=== PATIENT | female | born 1995 | race Caucasian/White ===

== ENCOUNTER 2017-07-10 20:09 | Emergency (ER) | payer MEDICAID, SELFPAY ==
[2017-07-10 20:23] VITALS: BP 150/82; PULSE 61; RESP 16; TEMP 36.6; O2SAT 99; BMI 29.9
[2017-07-10 20:53] VITALS: BP 133/82; PULSE 70; RESP 18; TEMP 37.1; O2SAT 99; BMI 29.9
[2017-07-10 21:00] LABS: UTC Strep Screen (Rapid) Positive (Negative)
--- NOTE | 2017-07-10 21:02 | HMH.EDUTC ---
[facility] [place] Clinical Impression: Strep pharyngitis Disposition: Home, Self-Care Condition on Discharge: Good Instructions: DI for Strep Throat Additional Instructions: Continue Keflex, Motrin as needed. Referrals: Onelia Rapp [Primary Care Provider] - Time of Disposition: 21:15 Medical Decision Making - Medical Records Medical records reviewed: Yes: I reviewed the patient's medical records. Vital Signs: 07/10/17 20:23 07/10/17 20:53 Temperature 97.8 F 98.8 F Temperature Source Tympanic Temporal Artery Scan Pulse Rate [Left] 61 70 Respiratory Rate 16 18 Blood Pressure [Right Arm] 150/82 133/82 Blood Pressure Mean [Right Arm] 104 99 Blood Pressure Source [Right Arm] Automatic Cuff Automatic Cuff Blood Pressure Position [Right Arm] Sitting 02 Sat by Pulse Oximetry 99 99 Oxygen Delivery Method Room Air Room Air - Lab Data Lab results reviewed: Yes: I reviewed the patient's lab results. Lab Results 07/10/17 20:56: Strep Scn Rapid Clinic Positive A Orders (Tests/Meds): ED MEDICATIONS Generic Name Dose Route Start Last Admin Trade Name Ingrid PRN Reason Stop Dose Admin Methylprednisolone Acetate 80 mg 07/10/17 21:01 Depo-Medrol 80mg/Ml Vial IM 07/10/17 21:02 ONCE ONE Penicillin G Benzathine 1,200,000 unit 07/10/17 21:01 Bicillin La 1,200,000 Units/2ml Syringe IM 07/10/17 21:02 ONCE ONE Protocol - [place] Inquiry Pt receiving controlled substance: No [facility] [place] HPI - General Stated complaint: knot on neck Time Seen by Provider: 07/10/17 20:49 Mode of Arrival: Ambulatory Source of Information: Patient Limitations: No Limitations Description of Symptoms (Recalled from Triage Doc. by RN): KNOT THAT POPPED UP ON RT SIDE OF NECK LAST NIGHT. [facility] DX URI. HEENT Symptoms (Recalled from RN notes): No Resp Symptoms (Recalled from RN notes): No Skin Symptoms (Recalled from RN notes): No MS Symptoms (Recalled from RN notes): No Functional Status (Recalled from RN notes): NA - History of Present Illness Provider Complaint: Swelling under right jaw since 0530 this morning. Seen at [facility] ER this am, diagnosed with URI, started on Keflex. Has taken three doses but swelling continues to get bigger. States it feels like something is stuck in her throat and it itches. Hurts to turn her head to the side and is painful to swallow. Denies difficulty handling secretions or difficulty breathing. No fever. - Related Data Home Medications Medication Instructions Recorded Confirmed No Known Home Medications [No 07/10/17 07/10/17 Known Home Medications] Allergies Allergy/AdvReac Type Severity Reaction Status Date / Time No Known Allergies Allergy Verified 07/10/17 20:56 - Worker's Comp Is this a Worker's Comp case?: No [facility] History I have reviewed the patient's past medical history: Yes - *Social History Alcohol Intake: never - Psychiatric History Expresses thoughts of harming self/others: None Suicide Plan Description: No Plan ROS Obtained: Yes All systems reviewed & no additional complaints - ENT Ears, Nose, Mouth, and Throat: Denies difficulty swallowing, Reports pain with swallowing, Reports sore throat, Reports throat swelling Physical Exam - General General appearance: alert, in no apparent distress - Head Head exam: atraumatic, normocephalic, normal inspection - Eye Eye exam: Present: normal appearance, PERRL, EOMI - ENT ENT exam: Present: normal exam, normal oropharynx, mucous membranes moist, TM's normal bilaterally, normal external ear exam - Expanded ENT Exam Throat exam: Present: tonsillar erythema, tonsillar exudate - Neck Neck exam: Present: normal inspection, full ROM, trachea midline, lymphadenopathy (right anterior cervical nodes enlarged and tender with visible swelling). Absent: meningismus - Chest Chest inspection: Present: normal inspection, symmetric chest wall rise. Absen
--- NOTE | 2017-07-10 21:05 | ED_ITS ---
[facility] Disposition Clinical Impression: Strep pharyngitis Disposition: Home, Self-Care Condition on Discharge: Good Instructions: DI for Strep Throat Additional Instructions: Continue Keflex, Motrin as needed. Referrals: Onelia Rapp [Primary Care Provider] - Time of Disposition: 21:15 Medical Decision Making - Medical Records Medical records reviewed: Yes: I reviewed the patient's medical records. Vital Signs: 07/10/17 20:23 07/10/17 20:53 Temperature 97.8 F 98.8 F Temperature Source Tympanic Temporal Artery Scan Pulse Rate [Left] 61 70 Respiratory Rate 16 18 Blood Pressure [Right Arm] 150/82 133/82 Blood Pressure Mean [Right Arm] 104 99 Blood Pressure Source [Right Arm] Automatic Cuff Automatic Cuff Blood Pressure Position [Right Arm] Sitting 02 Sat by Pulse Oximetry 99 99 Oxygen Delivery Method Room Air Room Air - Lab Data Lab results reviewed: Yes: I reviewed the patient's lab results. Lab Results 07/10/17 20:56: Strep Scn Rapid Clinic Positive A Orders (Tests/Meds): ED MEDICATIONS Generic Name Dose Route Start Last Admin Trade Name Ingrid PRN Reason Stop Dose Admin Methylprednisolone Acetate 80 mg 07/10/17 21:01 Depo-Medrol 80mg/Ml Vial IM 07/10/17 21:02 ONCE ONE Penicillin G Benzathine 1,200,000 unit 07/10/17 21:01 Bicillin La 1,200,000 Units/2ml Syringe IM 07/10/17 21:02 ONCE ONE Protocol - [place] Inquiry Pt receiving controlled substance: No [facility] HPI - General Stated complaint: knot on neck Time Seen by Provider: 07/10/17 20:49 Mode of Arrival: Ambulatory Source of Information: Patient Limitations: No Limitations Description of Symptoms (Recalled from Triage Doc. by RN): KNOT THAT POPPED UP ON RT SIDE OF NECK LAST NIGHT. [facility] DX URI. HEENT Symptoms (Recalled from RN notes): No Resp Symptoms (Recalled from RN notes): No Skin Symptoms (Recalled from RN notes): No MS Symptoms (Recalled from RN notes): No Functional Status (Recalled from RN notes): NA - History of Present Illness Provider Complaint: Swelling under right jaw since 0530 this morning. Seen at [facility] ER this am, diagnosed with URI, started on Keflex. Has taken three doses but swelling continues to get bigger. States it feels like something is stuck in her throat and it itches. Hurts to turn her head to the side and is painful to swallow. Denies difficulty handling secretions or difficulty breathing. No fever. - Related Data Home Medications Medication Instructions Recorded Confirmed No Known Home Medications [No 07/10/17 07/10/17 Known Home Medications] Allergies Allergy/AdvReac Type Severity Reaction Status Date / Time No Known Allergies Allergy Verified 07/10/17 20:56 - Worker's Comp Is this a Worker's Comp case?: No H History I have reviewed the patient's past medical history: Yes - *Social History Alcohol Intake: never - Psychiatric History Expresses thoughts of harming self/others: None Suicide Plan Description: No Plan ROS Obtained: Yes All systems reviewed & no additional complaints - ENT Ears, Nose, Mouth, and Throat: Denies difficulty swallowing, Reports pain with swallowing, Reports sore throat, Reports throat swelling
== END 2017-07-10 21:11 | disposition home or self-care (01) ==
PROVIDERS: Emergency Provider Physician Assistant; PCP Physician Assistant
DX: J02.0 Streptococcal pharyngitis (principal)
CPT/HCPCS: 87880; 96372; 99202; J0561; J1040